=== PATIENT | female | born 1935 | race Caucasian/White ===

== ENCOUNTER 2017-03-12 11:47 | Emergency (ER) | payer OTHER ==
[2017-03-12 11:52] VITALS: BP 163/80; PULSE 75; RESP 16; TEMP 98.1; O2SAT 94
--- NOTE | 2017-03-12 11:55 | EDPHY ---
HPI/HX/ROS/PE/MDM Narrative: CHIEF COMPLAINT: Light headed HPI: The patient is an 81 y/o female complaining of light headedness REVIEW OF SYSTEMS: Aside from elements discussed in the HPI, a comprehensive 10-point review of systems was reviewed and is negative. PMH: SOCIAL HISTORY: Lives in [place], , retired PHYSICAL EXAM: General:Patient is alert, in no acute distress. ENT:Eyes are normal to inspection. ENT inspection normal. Neck: Normal inspection. Full range of motion. Respiratory:No respiratory distress. Breath sounds normal bilaterally. Cardiovascular: Regular rate and rhythm. Strong peripheral pulses. Normal cap refill. Abdomen:The abdomen is nontender to palpation. There are no peritoneal signs. There are normal bowel sounds. Back: Normal to inspection. No tenderness to palpation. Skin: Normal color. No rash. Warm and dry. Extremities: Normal appearance. Full range of motion. Neuro: Oriented x3. Normal motor function. Normal sensory function. Portions of this note were transcribed by an ED scribe. I personally performed the history, physical exam, and medical decision making; and confirm the accuracy of the information in the transcribed note. General Time Seen by Provider: 03/12/17 11:53 Initial Vital Signs: Initial Vital Signs Temperature (C) 36.7 C 03/12/17 11:49 Heart Rate 75 03/12/17 11:49 Respiratory Rate 16 03/12/17 11:49 Blood Pressure 163/80 H 03/12/17 11:49 O2 Sat (%) 94 03/12/17 11:49 O2 Delivery Mode Room Air Allergies/Adverse Reactions: No Known Allergies Allergy (Verified 03/12/17 11:49) Home Medications: Medication Instructions Recorded Carbidopa/Levodopa 10/100Mg 08/02/15 [Sinemet 10/100 MG (RX)] Fludrocortisone Acetate [Florinef] 08/02/15 Levothyroxine [Synthroid] 25 mcg PO DAILY06 08/02/15 Mestinon 60mg (RX) 08/02/15 Midodrine HCl 08/02/15 Pramipexole Di-HCl [Mirapex 1.5 mg] 08/02/15 Departure - Departure Referrals: NONE *PRIMARY CARE P,. [Primary Care Provider] - As per Instructions Report Scribed for: Chino Beckham Report Scribed by: Arabella Verdugo Date of Report: 03/12/17 Time of Report: 11:55
== END 2017-03-12 12:00 | disposition left against medical advice (07) ==
DX: Z53.21 Procedure and treatment not carried out due to patient leaving prior to being seen by health care provider (principal)

== ENCOUNTER 2017-07-19 03:40 | Observation (INO) | payer OTHER ==
[2017-07-19] MEDS ORDERED: NS 1,000 ML IV ONE (03:49)
[2017-07-19] MEDS ORDERED: ONDANSETRON 4 MG/2 ML VIAL IVP ONE (03:49)
[2017-07-19 03:55] LABS: PLATELET COUNT 311 10^3/uL (150-400)
--- NOTE | 2017-07-19 06:10 | CPEKG ---
Heart Rate: 82 RR Interval: 732 QRSD Interval: 110 QT Interval: 400 QTC Interval: 468 QRS [place]be[place]: 96 T Wave [place]: -21 EKG Severity - ABNORMAL ECG - EKG Impression: NONSPECIFIC INTRAVENTRICULAR CONDUCTION DELAY EKG Impression: MINIMAL ST DEPRESSION, ANTEROLATERAL LEADS Electronically Signed By: Claire Sam 20-Jul-2017 07:37:28
--- NOTE | 2017-07-19 06:27 | EDPHY ---
H & P Stated Complaint: weakness, poss dehydration Time Seen by Provider: 07/19/17 03:46 HPI/ROS: HPI The patient presents with diarrhea, weakness, extremity pain. She is brought in by ambulance from [facility] in independent living facility where she resides. Apparently, the patient was well at about 9:00 p.m. When bed checks were performed. She was resting comfortably. Then, several hours later, she was found in her bed complaining of weakness with fecal incontinence with large amount of diarrhea. She was unable to stand to clean herself. She normally is able to walk fairly independently, using a walker occasionally. She was complaining of pain in her arms and legs which was cramping in nature. She has not had a fever. She denies any sick contacts. She said she did have a [employer] Gr[employer] dinner with some spicy foods. REVIEW OF SYSTEMS Constitutional: No fever, no chills. Eyes: No discharge. ENT: No sore throat. Cardiovascular: No chest pain, no palpitations. Respiratory: No cough, no shortness of breath. Gastrointestinal: No abdominal pain, no vomiting. Genitourinary: No hematuria. Musculoskeletal: No back pain. Skin: No rashes. Neurological: No headache. PMHx: [place] patient, history of Parkinson's, history of hypothyroidism, hyperlipidemia, renal insufficiency Soc Hx: Resides at [facility], aids in the care of her , walks without difficulty, though uses a walker occasionally PHYSICAL General Appearance: Alert, no distress Eyes: no pallor or injection ENT, Mouth: Mucous membranes dry Respiratory: There are no retractions, lungs are clear to auscultation Cardiovascular: Regular rate and rhythm Gastrointestinal: Abdomen is soft and non-tender, no masses, bowel sounds normal Neurological: A&O, moves all extremities Skin: Warm and dry, no rashes Musculoskeletal: Neck is supple non tender Extremities: symmetrical, full range of motion Psychiatric: Patient is oriented X 3, there is no agitation Source: Patient, EMS Exam Limitations: No limitations - Personal History Current Tetanus Diphtheria and Acellular Pertussis (TDAP): Unsure - Medical/Surgical History Hx Asthma: No Hx Chronic Respiratory Disease: No Hx Diabetes: No Hx Cardiac Disease: No Hx Renal Disease: No Hx Cirrhosis: No Hx Alcoholism: No Hx HIV/AIDS: No Hx Splenectomy or Spleen Trauma: No Other PMH: PMH: Parkinsons, hypothyroid, hyperlipidemia, left carotid bruit, left eye blindness, othostatic hypotension, renal insufficiency, osteopenia - Social History Smoking Status: Never smoked Constitutional: Initial Vital Signs Heart Rate 82 07/19/17 04:00 Respiratory Rate 20 07/19/17 04:00 Blood Pressure 103/52 L 07/19/17 04:00 O2 Sat (%) 92 07/19/17 04:00 O2 Delivery Mode Room Air Allergies/Adverse Reactions: No Known Allergies Allergy (Verified 07/19/17 04:09) Home Medications: Medication Instructions Recorded Carbidopa/Levodopa 10/100Mg 08/02/15 [Sinemet 10/100 MG (RX)] Fludrocortisone Acetate [Florinef] 08/02/15 Levothyroxine [Synthroid] 25 mcg PO DAILY06 08/02/15 Mestinon 60mg (RX) 08/02/15 Midodrine HCl 08/02/15 Pramipexole Di-HCl [Mirapex 1.5 mg] 08/02/15 Medical Decision Making - Diagnostics EKG Interpretation: EKG: Complete interpretation has been separately recorded in the [facility] archive. Summary impression: Normal sinus rhythm Imaging Results: Chest x-ray one view demonstrates possible small left-sided pleural effusion, no infiltrate, interpreted by me, radiology interpretation is pending. Differential Diagnosis: This is an 81-year-old female presenting from assisted living facility with diarrhea, weakness, extremity pain for the last several hours. On exam, blood pressure is low, heart rate normal. Her abdominal exam is benign. She has had no ongoing diarrhea. Differential diagnosis includes electrolyte disturbance, dehydration, viral gastroenteritis, toxin mediated enterocolitis, less likely C difficile is no antibiotics by report. In the emergency department, patient was given 1 L of fluid for presumed volume depletion with improvement in her symptoms. She had diminished pain in her extremities and felt stronger. Labs were checked and did demonstrate elevated BUN and creatinine consistent with pre renal azotemia with underlying chronic renal insufficiency. Lactate was normal. Blood pressure improved. I feel she should be admitted for continued hydration I have discussed the case with the hospitalist Dr. Garcia. - Data Points Laboratory Results: Laboratory Results 07/19/17 03:40 07/19/17 03:40 07/19/17 07/19/17 07/19/17 05:40 03:40 03:40 WBC RBC Hgb Hct MCV MCH MCHC RDW Plt Count MPV Neut % (Auto) Lymph % (Auto) Morrill % (Auto) Eos % (Auto) Baso % (Auto) Nucleat RBC Rel Count Absolute Neuts (auto) Absolute Lymphs (auto) Absolute Monos (auto) Absolute Eos (auto) Absolute Basos (auto) Absolute Nucleated RBC Immature Gran % Immature Gran # VBG Lactic Acid 1.4 mmol/L mmol/L (0.7-2.1) Sodium 148 mEq/L H mEq/L (135-145) Potassium 4.0 mEq/L mEq/L (3.5-5.2) Chloride 111 mEq/L H mEq/L (97-110) Carbon Dioxide 24 mEq/l mEq/l (22-31) Anion Gap 13 mEq/L mEq/L (8-16) BUN 46 mg/dL H mg/dL (7-23) Creatinine 1.3 mg/dL H mg/dL (0.6-1.0) Estimated GFR 39 Glucose 107 mg/dL H mg/dL (70-100) Calcium 9.2 mg/dL mg/dL (8.5-10.4) Magnesium 1.6 mg/dL mg/dL (1.6-2.3) Total Bilirubin 0.4 mg/dL mg/dL (0.1-1.4) AST 21 IU/L IU/L (14-46) ALT 24 IU/L IU/L (9-52) Alkaline Phosphatase 122 IU/L IU/L (38-126) Creatine Kinase 87 IU/L IU/L (0-156) Total Protein 6.4 g/dL g/dL (6.3-8.2) Albumin 3.9 g/dL g/dL (3.5-5.0) 07/19/17 03:40 WBC 8.91 10^3/uL 10^3/uL (3.80-9.50) RBC 4.19 10^6/uL 10^6/uL (4.18-5.33) Hgb 12.6 g/dL g/dL (12.6-16.3) Hct 39.1 % % (38.0-47.0) MCV 93.3 fL fL (81.5-99.8) MCH 30.1 pg pg (27.9-34.1) MCHC 32.2 g/dL L g/dL (32.4-36.7) RDW 13.5 % % (11.5-15.2) Plt Count 311 10^3/uL 10^3/uL (150-400) MPV 10.2 fL fL (8.7-11.7) Neut % (Auto) 86.0 % H % (39.3-74.2) Lymph % (Auto) 8.2 % L % (15.0-45.0) Morrill % (Auto) 4.3 % L % (4.5-13.0) Eos % (Auto) 1.0 % % (0.6-7.6) Baso % (Auto) 0.3 % % (0.3-1.7) Nucleat RBC Rel Count 0.0 % % (0.0-0.2) Absolute Neuts (auto) 7.66 10^3/uL H 10^3/uL (1.70-6.50) Absolute Lymphs (auto) 0.73 10^3/uL L 10^3/uL (1.00-3.00) Absolute Monos (auto) 0.38 10^3/uL 10^3/uL (0.30-0.80) Absolute Eos (auto) 0.09 10^3/uL 10^3/uL (0.03-0.40) Absolute Basos (auto) 0.03 10^3/uL 10^3/uL (0.02-0.10) Absolute Nucleated RBC 0.00 10^3/uL 10^3/uL (0-0.01) Immature Gran % 0.2 % % (0.0-1.1) Immature Gran # 0.02 10^3/uL 10^3/uL (0.00-0.10) VBG Lactic Acid Sodium Potassium Chloride Carbon Dioxide Anion Gap BUN Creatinine Estimated GFR Glucose Calcium Magnesium Total Bilirubin AST ALT Alkaline Phosphatase Creatine Kinase Total Protein Albumin Medications Given: Discontinued Medications Sodium Chloride (Ns) 1,000 mls @ 0 mls/hr IV EDNOW ONE; Wide Open PRN Reason: Protocol Stop: 07/19/17 03:50 Last Admin: 07/19/17 03:59 Dose: 1,000 mls Ondansetron HCl (Zofran) 4 mg IVP EDNOW ONE Stop: 07/19/17 03:50 Last Admin: 07/19/17 04:13 Dose: Not Given Departure - Departure Disposition: [facility] Inpatient Acute Clinical Impression: Dehydration, Acute on chronic renal failure, Diarrhea, Weakness Condition: Fair Referrals: NONE *PRIMARY CARE P,. [Primary Care Provider] - As per Instructions
[2017-07-19] MEDS ORDERED: NS 1,000 ML IV SCH ×2 (06:45→07:15)
[2017-07-19] MEDS ORDERED: ONDANSETRON 4 MG/2 ML VIAL IVP PRN ×2 (07:05→08:21)
[2017-07-19] MEDS ORDERED: ACETAMINOPHEN 325 MG TAB PO PRN ×2 (07:05→08:21)
[2017-07-19] MEDS: HEPARIN 5,000 UNIT/0.5 ML SYR SC SCH ×2 (08:00→15:59)
[2017-07-19] MEDS: LEVOTHYROXINE 100 MCG TAB PO SCH (11:31)
[2017-07-19] MEDS: ATORVASTATIN CALCIUM 40 MG TAB PO SCH (11:31)
[2017-07-19] MEDS: CARBIDOPA/LEVODOPA 25 MG/100 MG TAB PO SCH ×3 (11:32→20:13)
[2017-07-19] MEDS: POTASSIUM CL 10 MEQ TAB PO SCH (11:32)
[2017-07-19] MEDS: ASPIRIN 81 MG CHEWABLE TAB PO SCH (11:33)
[2017-07-19] MEDS: FLUDROCORTISONE ACETATE 0.1 MG TAB PO SCH (11:48)
[2017-07-19] MEDS ORDERED: NON-FORMULARY NEW DRUG (Midodrine Hcl [Midodrine Hcl] 10 MG) PO SCH (12:00)
[2017-07-19] MEDS: PYRIDOSTIGMINE BROMIDE 60 MG TAB PO SCH ×2 (13:12→16:21)
[2017-07-19] MEDS: MIDODRINE HCL 5 MG TAB PO SCH ×2 (13:12→16:21)
[2017-07-19] MEDS: NS 1,000 ML IV SCH (13:16)
[2017-07-19] MEDS: CARBIDOPA/LEVO CR 50 MG/200 MG TAB PO SCH (13:18)
--- NOTE | 2017-07-19 16:29 | GHP ---
[f rep st] HISTORY AND PHYSICAL DATE OF ADMISSION: 07/19/2017 CHIEF COMPLAINT: Diarrhea, weakness. HISTORY OF PRESENT ILLNESS: This is an 81-year-old female who has a history of Parkinson's. She sultana es in assisted living. She presented with acute diarrhea last night and fecal incontinence and weakn ess. She was unable to stand to clean herself. She usually is walking fairly independently. She is not having any nausea, vomiting. She has a little bit of lower abdominal pain. No fevers or chills . She did have a [employer] Gras dinner with food that she is not usually accustomed to including spicy f ood that night. I am seeing her several hours after admission, and patient currently feels a lot bet ter with a little bit of IV fluids. She is not having any further diarrhea. Abdominal pain seems to be improving. REVIEW OF SYSTEMS: A 10-point review of systems was obtained and negative. PAST MEDICAL HISTORY: 1. Parkinson's. 2. Renal insufficiency. 3. Hyperlipidemia. 4. Appears to have orthostatic or autonomic insufficiency. She is on multiple medications for her b lood pressure. MEDICATIONS: Reviewed. SOCIAL HISTORY: Lives in assisted living. No smoking. FAMILY HISTORY: Reviewed and noncontributory. PHYSICAL EXAM: VITAL SIGNS: Afebrile, blood pressure is elevated at 159/96, heart rate 80, oxygen s aturation 98% on room air. GENERAL: The patient is well developed, no apparent distress. HEENT: N onicteric sclerae. Extraocular movements intact. Moist mucous membranes. NECK: Supple. No thyrom egaly. LUNGS: Good effort. Clear to auscultation bilaterally. CARDIOVASCULAR: Regular rate and r hythm. No murmurs, gallops. ABDOMEN: Positive bowel sounds. Soft, some mild right lower quadrant tenderness. No rebound or guarding. EXTREMITIES: No clubbing, cyanosis, edema. SKIN: Without gabo h, warm, intact. NEURO: Alert and oriented x3. Moving all 4 extremities equally. PSYCH: Normal a ffect. LABS: CBC is essentially normal. Lactic acid is normal. Chemistry does show a little bit of elevat ed sodium at 148. Creatinine is 1.3, and I do not have a baseline for her. Infectious panel is nega tive. Chest x-ray is being read a possible aneurysm versus hiatal hernia. ASSESSMENT/PLAN: 1. Acute diarrheal illness. This seems to be more of a food poisoning or food intolerance situation . She is not having nausea, vomiting, or fever. Her symptoms seem to be resolved. We will continue to monitor. 2. Dehydration. Continue IV fluids. 3. Hypernatremia, probably secondary to dehydration. 4. Acute renal failure versus chronic renal insufficiency. We will hydrate and see what her creatin ine is. 5. Possible soft tissue mass versus hiatal hernia versus descending thoracic aortic aneurysm. We wi ll hold off on CT scanning, see if her for creatinine improves, she may be able to get a contrast CT. It would probably be a better study. 6. Parkinson's. Continue medications. /[id number]/MODL
[2017-07-19] MEDS ORDERED: CARBIDOPA/LEVO CR 50 MG/200 MG TAB PO SCH (21:00)
[2017-07-19] MEDS ORDERED: PRAMIPEXOLE DI HCL 1.5 MG PO SCH (21:00)
[2017-07-20] MEDS: NS 1,000 ML IV SCH ×2 (00:04→08:55)
[2017-07-20] MEDS: LEVOTHYROXINE 100 MCG TAB PO SCH (06:10)
[2017-07-20] MEDS: CARBIDOPA/LEVODOPA 25 MG/100 MG TAB PO SCH ×3 (08:47→16:02)
[2017-07-20] MEDS: CARBIDOPA/LEVO CR 50 MG/200 MG TAB PO SCH ×3 (08:48→16:04)
[2017-07-20] MEDS: ATORVASTATIN CALCIUM 40 MG TAB PO SCH (08:49)
[2017-07-20] MEDS: MIDODRINE HCL 5 MG TAB PO SCH ×3 (08:49→16:01)
[2017-07-20] MEDS: FLUDROCORTISONE ACETATE 0.1 MG TAB PO SCH (08:49)
[2017-07-20] MEDS: POTASSIUM CL 10 MEQ TAB PO SCH (08:49)
[2017-07-20] MEDS: ASPIRIN 81 MG CHEWABLE TAB PO SCH (08:50)
[2017-07-20] MEDS: PYRIDOSTIGMINE BROMIDE 60 MG TAB PO SCH ×3 (08:50→16:02)
[2017-07-20] MEDS ORDERED: HALOPERIDOL LACT 5 MG/ML INJ IV ONE (10:15)
--- NOTE | 2017-07-20 13:41 | PDIAF ---
- Diagnosis Diagnosis: diarrhea - Medication Management Discharge Medications: Medications to Continue on Transfer Aspirin [Aspirin 81mg (*)] 81 mg PO DAILY 07/19/17 [Last Taken Unknown] Atorvastatin Calcium [Lipitor 40 mg (*)] 40 mg PO DAILY 07/19/17 [Last Taken Unknown] C,E,Zinc,Copper 11/Iieat9u/Lut [Ocuvite Adult 50 Plus Softgel] 1 each PO DAILY 07/19/17 [Last Taken Unknown] Calcium Citrate [Citracal] 200 mg PO DAILY 07/19/17 [Last Taken Unknown] Carbidopa/Levo Cr 50/200Mg [SINEMET CR 50/200 MG (*)] 0.5 tab PO 07,13 07/19/17 [Last Taken Unknown] Carbidopa/Levo Cr 50/200Mg [SINEMET CR 50/200 MG (*)] 1 tab PO HS 07/19/17 [ Last Taken Unknown] Carbidopa/Levodopa 25/100Mg [Sinemet 25/100 MG (*)] 0.5 tab PO 0700,1200,1630, 2100 07/19/17 [Last Taken Unknown] Cholecalciferol Vit D3 [Vitamin D3 (*)] 1,000 units PO DAILY 07/19/17 [Last Taken Unknown] Cyanocobalamin [Vitamin B12 (*)] 1,000 mcg PO DAILY 07/19/17 [Last Taken Unknown ] Fludrocortisone Acetate [Florinef] 0.3 mg PO DAILY 07/19/17 [Last Taken Unknown] Ketoconazole 2% [Nizoral Shampoo (*)] 1 kranthi TP DAILY 07/19/17 [Last Taken Unknown] Levothyroxine [Synthroid 100 mcg (*)] 100 mcg PO DAILY06 07/19/17 [Last Taken Unknown] Midodrine HCl 10 mg PO TID@07,12,1630 07/19/17 [Last Taken Unknown] Potassium Cl [Klor-Con 10 meq (RX)] 10 meq PO DAILY 07/19/17 [Last Taken Unknown ] Pramipexole Di-HCl [Mirapex ER] 3 mg PO HS 07/19/17 [Last Taken Unknown] Pyridostigmine [place] [Mestinon 60mg (*)] 60 mg PO TID@07,12,1630 07/19/17 [ Last Taken Unknown] Discharge Medications: Refer to the Discharge Home Medication list for PRN reason. - Orders Services needed: Home Care, Registered Nurse, Physical Therapy, Occupational Therapy Home Care Face to Face: I certify that this patient was under my care and that I had the required [id number] encounter meeting the encounter requirements on the discharge day. My findings support the fact that the patient is homebound as defined in Home Care Face to Face Continued: CMS Chapter 7 Medicare Benefits Manual 30.1.1 , The condition of the patient is such that there exists a normal inability to leave home and consequently, leaving home would require a considerable and taxing effort. - Follow Up Care Current Providers and Referrals: NONE *PRIMARY CARE P,. [Primary Care Provider] - As per Instructions
[2017-07-20 14:44] VITALS: O2SAT 94
[2017-07-20 17:31] VITALS: BP 172/98; PULSE 88; RESP 16; TEMP 98.6
--- NOTE | 2017-07-21 12:22 | ASDISCHSUM ---
Discharge Information Plan Status: Medically Cleared to Leave: Discharge Date:07/20/2017 07:32 PM CM D/C Disposition: ADT D/C Disposition:Home, Routine, Self-Care Projected Discharge Date:07/20/2017 11:00 AM Transportation at D/C: Discharge Delay Reason: Follow-Up Date:07/20/2017 11:00 AM Discharge Slot: Final Diagnosis: Placement Information Referral Type:Assisted Living Residence Referral ID:[id number] Provider Name:Josephine Ramos [facility] Address 1:[address] Phone Number: Address 2: Fax Number: [facility]:[place] Selection Factors: State:[place] Referral Type:*Home Health Care Services Referral ID:[id number] Provider Name:[facility] Address 1:[address] Address 2: City:[place] Selection Factors: State:[place] Patient Contact Information Contact Name:ROSELINE Relationship:Son Address: City: Alternate Phone: State/Zip Code: Email: Financial Information Financial Class:Medicare Advantage Plans Primary Plan Desc:[employer] OUTPAT Primary Plan Number:[id number] Secondary Plan Desc: Secondary Plan Number: Assessment Information [facility] CM Progress Note CM Note CM Note Notes: Pt admitted OBS from [facility] where she lives with her . Pt needs PT/OT at home. [facility] has the [employer] contract. Pt DC'd last night. Start of care will be 07/22. Date Signed: 07/21/2017 12:22 PM Electronically Signed By:Tasha Burt LCSW Intervention Information Intervention Type:*MCKEON-Signed Date of Service:07/19/2017 11:38 AM Patient Type:Observation Staff Member:Rosita Steele Hours: Discipline: Severity: Comment:
== END 2017-07-20 19:32 | disposition home or self-care (01) ==
LOC: EDUNIT# → F1N 08:19
PROVIDERS: ADMIT Family Medicine; ATTEND Family Medicine
DX: R19.7 Diarrhea, unspecified (principal); E86.0 Dehydration; E87.0 Hyperosmolality and hypernatremia; R53.1 Weakness; G20 Parkinson's disease; E03.9 Hypothyroidism, unspecified; E78.5 Hyperlipidemia, unspecified; H54.62 Unqualified visual loss, left eye, normal vision right eye; I95.1 Orthostatic hypotension; N18.9 Chronic kidney disease, unspecified
CPT/HCPCS: 71045; 93005; 96360; 99285; G0378; J1630; J1644

== ENCOUNTER 2017-08-12 10:47 | Emergency (ER) | payer OTHER ==
--- NOTE | 2017-08-12 11:03 | EDPHY ---
H & P Stated Complaint: increased parkinsonion tremors, recent medication changes Time Seen by Provider: 08/12/17 10:57 HPI/ROS: CHIEF COMPLAINT: Worsening Parkinsonian movement HISTORY OF PRESENT ILLNESS: The patient is brought to the emergency department by ambulance at the request of her family with reported worsening Parkinson's movement over the past day. The patient recently was started on medication for some delirium. She was started on this medication 2 weeks ago. There have been no changes to her regular Parkinson's medication. She took her regular dose of meds this morning. In the ED, the patient denies any acute pain, headache, neck pain, extremity pain or focal numbness or weakness. She has had no history of fever, cough or congestion. REVIEW OF SYSTEMS: A comprehensive 10 point review of systems is otherwise negative aside from elements mentioned in the history of present illness. Source: Patient Exam Limitations: No limitations - Personal History Current Tetanus Diphtheria and Acellular Pertussis (TDAP): Yes - Medical/Surgical History Hx Asthma: No Hx Chronic Respiratory Disease: No Hx Diabetes: No Hx Cardiac Disease: No Hx Renal Disease: No Hx Cirrhosis: No Hx Alcoholism: No Hx HIV/AIDS: No Hx Splenectomy or Spleen Trauma: No Other PMH: PMH: Parkinsons, hypothyroid, hyperlipidemia, left carotid bruit, left eye blindness, othostatic hypotension, renal insufficiency, osteopenia - Social History Smoking Status: Never smoked - Physical Exam Exam: General Appearance: Elderly female, no acute distress Eyes: Pupils equal and round no pallor or injection ENT, Mouth: Mucous membranes moist Respiratory: There are no retractions, lungs are clear to auscultation Cardiovascular: Regular rate and rhythm Gastrointestinal: Abdomen is soft and nontender, no masses, bowel sounds normal Neurological: Alert and oriented x3, 5/5 strength all 4 extremities, dyskinetic movements noted Extremities: symmetrical, full range of motion Constitutional: Initial Vital Signs Temperature (C) 36.3 C 08/12/17 10:56 Heart Rate 72 08/12/17 10:56 Respiratory Rate 18 08/12/17 10:56 Blood Pressure 164/107 H 08/12/17 10:56 O2 Sat (%) 95 08/12/17 10:56 O2 Delivery Mode Room Air Allergies/Adverse Reactions: No Known Allergies Allergy (Verified 08/12/17 11:36) Home Medications: Medication Instructions Recorded Calcium Citrate [Citracal] 200 mg PO DAILY 07/19/17 Carbidopa/Levo Cr 50/200Mg 0.5 tab PO 07,13 07/19/17 [SINEMET CR 50/200 MG (*)] Carbidopa/Levo Cr 50/200Mg 1 tab PO HS 07/19/17 [SINEMET CR 50/200 MG (*)] Carbidopa/Levodopa 25/100Mg 0.5 tab PO 0700,1200,1630,2100 07/19/17 [Sinemet 25/100 MG (*)] Cholecalciferol Vit D3 [Vitamin D3 1,000 units PO DAILY 07/19/17 (*)] Cyanocobalamin [Vitamin B12 (*)] 1,000 mcg PO DAILY 07/19/17 Fludrocortisone Acetate [Florinef] 0.3 mg PO DAILY 07/19/17 Levothyroxine [Synthroid 100 mcg 100 mcg PO DAILY06 07/19/17 (*)] Pramipexole Di-HCl [Mirapex ER] 3 mg PO HS 07/19/17 Aricept 08/12/17 Lipitor 08/12/17 Nizoral 2% Cream (*) 08/12/17 Tylenol 325mg (*) 08/12/17 Medical Decision Making ED Course/Re-evaluation: The patient presents to the ED with dyskinetic movements this morning. The patient has a history of Parkinson's disease and likely is having some over treatment of her condition. I spoke with her neurologist who recommends that she hold her CR carbidopa/ levodopa doses in the morning and afternoon take the medication only at night if she is exhibiting symptoms of over treatment. I have reviewed this with the patient and her son. They will communicate this to the patient's assisted living facility. The patient's neurologist will contact the patient to schedule a follow-up visit next week. She has been discharged home with customary aftercare instructions and return precautions. Differential Diagnosis: Differential diagnosis considered includes Parkinson's disease, dehydration, metabolic abnormality, medication side effect - Data Points Laboratory Results: Laboratory Results 08/12/17 11:15 08/12/17 11:15 08/12/17 08/12/17 11:15 11:15 WBC 7.41 10^3/uL 10^3/uL (3.80-9.50) RBC 3.83 10^6/uL L 10^6/uL (4.18-5.33) Hgb 11.3 g/dL L g/dL (12.6-16.3) Hct 34.7 % L % (38.0-47.0) MCV 90.6 fL fL (81.5-99.8) MCH 29.5 pg pg (27.9-34.1) MCHC 32.6 g/dL g/dL (32.4-36.7) RDW 13.8 % % (11.5-15.2) Plt Count 307 10^3/uL 10^3/uL (150-400) MPV 9.8 fL fL (8.7-11.7) Neut % (Auto) 70.6 % % (39.3-74.2) Lymph % (Auto) 18.4 % % (15.0-45.0) [place] % (Auto) 8.4 % % (4.5-13.0) Eos % (Auto) 1.5 % % (0.6-7.6) Baso % (Auto) 0.8 % % (0.3-1.7) Nucleat RBC Rel Count 0.0 % % (0.0-0.2) Absolute Neuts (auto) 5.24 10^3/uL 10^3/uL (1.70-6.50) Absolute Lymphs (auto) 1.36 10^3/uL 10^3/uL (1.00-3.00) Absolute Monos (auto) 0.62 10^3/uL 10^3/uL (0.30-0.80) Absolute Eos (auto) 0.11 10^3/uL 10^3/uL (0.03-0.40) Absolute Basos (auto) 0.06 10^3/uL 10^3/uL (0.02-0.10) Absolute Nucleated RBC 0.00 10^3/uL 10^3/uL (0-0.01) Immature Gran % 0.3 % % (0.0-1.1) Immature Gran # 0.02 10^3/uL 10^3/uL (0.00-0.10) Sodium 147 mEq/L H mEq/L (135-145) Potassium 3.6 mEq/L mEq/L (3.5-5.2) Chloride 112 mEq/L H mEq/L (97-110) Carbon Dioxide 27 mEq/l mEq/l (22-31) Anion Gap 8 mEq/L mEq/L (8-16) BUN 38 mg/dL H mg/dL (7-23) Creatinine 1.2 mg/dL H mg/dL (0.6-1.0) Estimated GFR 43 Glucose 54 mg/dL L mg/dL (70-100) Calcium 8.4 mg/dL L mg/dL (8.5-10.4) Departure - Departure Disposition: Home, Routine, Self-Care Clinical Impression: Parkinsons Condition: Good Instructions: Parkinson Disease (ED) Additional Instructions: 1. I spoke with your neurologist who recommends that carbidopa/levodopa CR medication be administered at night only and not 3 times a day. 2. Please contact their office to schedule a follow-up visit on Monday. 3. Please return to the ED for any worsening symptoms, fever, pain or other concerns. Referrals: Kaity PÉREZ MD [Other] - As per Instructions
[2017-08-12 11:16] VITALS: PULSE 72; RESP 18; TEMP 97.3
[2017-08-12 11:24] LABS: PLATELET COUNT 307 10^3/uL (150-400)
[2017-08-12 12:26] VITALS: BP 124/98; O2SAT 96
== END 2017-08-12 12:59 | disposition home or self-care (01) ==
LOC: EDUNIT#
DX: G20 Parkinson's disease (principal)

== ENCOUNTER 2017-08-19 08:42 | Observation (INO) | payer OTHER ==
--- NOTE | 2017-08-19 09:49 | EDPHY ---
H & P Smoking Status: Never smoked Time Seen by Provider: 08/19/17 09:20 HPI/ROS: CHIEF COMPLAINT: Weakness HISTORY OF PRESENT ILLNESS: 81-year-old female presents to the emergency department with overall generalized weakness. Patient lives in independent living facility and her son and daughter at bedside states that there has been a very steep decline acutely within the last few days. She is now having difficulty talking and swallowing. She feels very tired and weak. She is requiring assistance with toileting and getting around. Just last week she was able to use her walker independently. Her son states even last week she was "baking brownies". She denies a headache. She has a history of multiple falls. They think that the most recent fall was a few days ago. She is having some pain in her right shoulder. She has been evaluated by OT and PT. She was supposed to go to inpatient rehab today but they were concerned about the acute decline and brought her to the emergency department for evaluation. No reported fever. No URI symptoms. She did have episodes of diarrhea on Monday , 4 or 5 days ago which have now resolved. No chest pain or difficulty breathing. Her appetite has been normal. No urinary symptoms. She denies pain in her lower legs. She states that she just feels "very tired". Her son is wondering if this is related to some of her medications. REVIEW OF SYSTEMS: Constitutional: No fever, no chills. Eyes: No double or blurry vision. ENT: No sore throat. Respiratory: No cough, no shortness of breath. Cardiac: No chest pain. Gastrointestinal: No abdominal pain, vomiting or diarrhea. Genitourinary: No dysuria. Musculoskeletal: No neck or back pain. Skin: No rashes. Neurological: No headache. (KatarinaRiddhi loera) Past Medical/Surgical History: Parkinson's disease, hypothyroidism, hyperlipidemia, left carotid bruit, left eye blindness, orthostatic hypotension, renal insufficiency, osteopenia (Riddhi Conrad) Social History: and lives in independent living with her . (KatarinaRiddhi loera) Physical Exam: General Appearance: Alert, no distress. 123/69, 36.4 temp Eyes: Pupils equal and round. Extraocular motions are all intact. ENT: Mouth: Mucous membranes moist. Respiratory: No wheezing, rhonchi, or rales, lungs are clear to auscultation. Cardiovascular: Regular rate and rhythm. Gastrointestinal: Abdomen is soft and nontender, no masses, no rebound or guarding, bowel sounds normal. Neurological: Alert and oriented x 3, cranial nerves II through XII grossly intact Skin: Warm and dry, no rashes. Musculoskeletal: Nontender to palpate along the cervical, thoracic or lumbar spine. Neck is supple. Extremities: Deformity noted to the right shoulder. Minimally tender to palpate the right humeral head. Limited internal and external rotation. She is unable to flex and extend because of pain. She has full range of motion of her right elbow and wrist however. Full range of motion of the left upper extremity and lower extremities bilaterally. Psychiatric: Patient is oriented X 3, there is no agitation. (Riddhi Conrad) Constitutional: Initial Vital Signs Temperature (C) 36.4 C 08/19/17 08:47 Heart Rate 64 08/19/17 08:47 Respiratory Rate 17 08/19/17 08:47 Blood Pressure 123/69 H 08/19/17 08:47 O2 Sat (%) 97 08/19/17 08:47 O2 Delivery Mode Room Air Allergies/Adverse Reactions: No Known Allergies Allergy (Verified 08/19/17 08:44) Home Medications: Medication Instructions Recorded Carbidopa/Levo Cr 50/200Mg 1 tab PO HS 07/19/17 [SINEMET CR 50/200 MG (*)] Carbidopa/Levodopa 25/100Mg 0.5 tab PO 0700,1200,1630,2100 07/19/17 [Sinemet 25/100 MG (*)] Cholecalciferol Vit D3 [Vitamin D3 1,000 units PO DAILY 07/19/17 (*)] Cyanocobalamin [Vitamin B12 (*)] 1,000 mcg PO DAILY 07/19/17 Fludrocortisone Acetate [Florinef] 0.3 mg PO DAILY 07/19/17 Levothyroxine [Synthroid 100 mcg 100 mcg PO DAILY06 07/19/17 (*)] Acetaminophen [Tylenol ES 500 mg 500 - 1,000 mg PO Q6 PRN 08/19/17 (*)] Atorvastatin Calcium [Lipitor 40 40 mg PO DAILY 08/19/17 mg (*)] Donepezil HCl 5 mg PO DAILY 08/19/17 Ketoconazole 2% [Nizoral 2% Cream 1 kranthi TP BID PRN 08/19/17 (*)] Potassium Cl [Klor-Con] 10 meq PO DAILY 08/19/17 Pramipexole Di-HCl [Mirapex 1 mg 3 mg PO HS 08/19/17 (*)] Pyridostigmine Clifford [Mestinon 60 mg PO TID 08/19/17 60mg (*)] Medical Decision Making - Diagnostics Imaging: Discussed imaging studies w/ weight caller Radiologist, I viewed and interpreted images myself - Diagnostics EKG Interpretation: EKG interpreted by me shows normal sinus rhythm normal interval and axis. QRS appears normal there is no significant ST elevation or depression. There is no arrhythmia. The rate is 65 (Nino Escalante) Imaging Results: Imaging Impressions Head CT 08/19/17 09:53 Impression: 1. Mild to moderate age-related atrophy. 2. Hypodense chronic subdural hematoma measuring 7-8 mm in thickness over the right frontal and parietal lobes with 3 to 4 mm of [id number]-[id number] shift. If symptoms worsen, additional imaging may be necessary. Findings discussed with Riddhi Conrad PA-C at 11:06 hour, 08/19/2017. Chest X-Ray 08/19/17 11:02 Impression: 1. No active cardiopulmonary disease seen. 2. Leftward subluxation of L1 on L2 with compression of the endplates. Consider dedicated lumbar spine series for further characterization. Shoulder X-Ray 08/19/17 11:02 Impression: 1. The right proximal humeral head is positioned in an exaggerated internal rotation position. A definitive dislocation is not appreciated. If there is a high clinical concern then consider CT or MRI as clinically directed. ED Course/Re-evaluation: I did not see this patient while she was in the emergency department. However her care was discussed with the PA while the patient was in the department. I agree with treatment plan and management (Nino Escalante) 81-year-old female presents to the emergency department with weakness. The patient has a history of Parkinson's. Her son and daughter at bedside states that they have been changing her medications some. She is scheduled to go to rehab this afternoon, however they have noticed more of an acute decline especially over last few days in her mentation. 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 CT imaging reveals evidence of small subdural hematoma involving right frontal parietal lobe with right to left shift at 3 mm. The radiologist says that this appears old. I did speak with the on-call neurosurgeon, Dr. Fleming, who did come to evaluate the patient and does not feel that any intervention is necessary right now. The patient is holding her right shoulder in obvious internal rotation. She has a very limited mobility of her right shoulder. I was concerned about possible dislocation. X-rays do not reveal obvious fracture however difficult to tell as if it is dislocated or if it's positional. CT imaging of the right shoulder has been ordered and is pending. The patient will be admitted to Dr. Idris Landaverde, hospitalist. I did speak with the [facility] physician and they are okay with her staying here. The son and daughter at bedside understand that given her acute decline as well as findings of subdural hematoma with shift that I do not think that she is safe for discharging to rehab. (Riddhi Conrad) Differential Diagnosis: Weakness including but not limited to electrolyte abnormality, depression, anxiety, CVA, spinal cord abnormality, and infectious causes. (Riddhi Conrad) - Data Points Laboratory Results: Laboratory Results 08/19/17 09:59 08/19/17 09:59 08/19/17 08/19/17 08/19/17 12:03 11:00 09:59 WBC RBC Hgb Hct MCV MCH MCHC RDW Plt Count MPV Neut % (Auto) Lymph % (Auto) Slope % (Auto) Eos % (Auto) Baso % (Auto) Nucleat RBC Rel Count Absolute Neuts (auto) Absolute Lymphs (auto) Absolute Monos (auto) Absolute Eos (auto) Absolute Basos (auto) Absolute Nucleated RBC Immature Gran % Immature Gran # PT 14.2 SEC SEC (12.0-15.0) INR 1.08 (0.83-1.16) APTT 37.0 SEC SEC (23.0-38.0) Sodium 143 mEq/L mEq/L (135-145) Potassium 3.4 mEq/L L mEq/L (3.5-5.2) Chloride 106 mEq/L mEq/L (97-110) Carbon Dioxide 28 mEq/l mEq/l (22-31) Anion Gap 9 mEq/L mEq/L (8-16) BUN 36 mg/dL H mg/dL (7-23) Creatinine 1.0 mg/dL mg/dL (0.6-1.0) Estimated GFR 53 Glucose 70 mg/dL mg/dL (70-100) Calcium 8.3 mg/dL L mg/dL (8.5-10.4) Troponin I < 0.012 ng/mL ng/mL (0.000-0.034) Urine Color YELLOW Urine Appearance HAZY Urine pH 5.0 (5.0-7.5) Ur Specific [place] 1.019 (1.002-1.030) Urine Protein NEGATIVE (NEGATIVE) Urine Ketones TRACE H (NEGATIVE) Urine Blood NEGATIVE (NEGATIVE) Urine Nitrate NEGATIVE (NEGATIVE) Urine Bilirubin NEGATIVE (NEGATIVE) Urine Urobilinogen NEGATIVE EU EU (0.2-1.0) Ur Leukocyte Esterase NEGATIVE (NEGATIVE) Urine RBC 1-3 /hpf /hpf (0-3) Urine WBC 1-3 /hpf /hpf (0-3) Ur Epithelial Cells TRACE /lpf /lpf (NONE-1+) Hyaline Casts 5-15 /lpf /lpf (0-1) Urine Mucus TRACE /lpf /lpf (NONE-1+) Urine Glucose NEGATIVE (NEGATIVE) 08/19/17 09:59 WBC 8.26 10^3/uL 10^3/uL (3.80-9.50) RBC 3.99 10^6/uL L 10^6/uL (4.18-5.33) Hgb 11.5 g/dL L g/dL (12.6-16.3) Hct 35.7 % L % (38.0-47.0) MCV 89.5 fL fL (81.5-99.8) MCH 28.8 pg pg (27.9-34.1) MCHC 32.2 g/dL L g/dL (32.4-36.7) RDW 13.7 % % (11.5-15.2) Plt Count 283 10^3/uL 10^3/uL (150-400) MPV 10.0 fL fL (8.7-11.7) Neut % (Auto) 78.4 % H % (39.3-74.2) Lymph % (Auto) 13.2 % L % (15.0-45.0) Slope % (Auto) 6.7 % % (4.5-13.0) Eos % (Auto) 1.1 % % (0.6-7.6) Baso % (Auto) 0.4 % % (0.3-1.7) Nucleat RBC Rel Count 0.0 % % (0.0-0.2) Absolute Neuts (auto) 6.48 10^3/uL 10^3/uL (1.70-6.50) Absolute Lymphs (auto) 1.09 10^3/uL 10^3/uL (1.00-3.00) Absolute Monos (auto) 0.55 10^3/uL 10^3/uL (0.30-0.80) Absolute Eos (auto) 0.09 10^3/uL 10^3/uL (0.03-0.40) Absolute Basos (auto) 0.03 10^3/uL 10^3/uL (0.02-0.10) Absolute Nucleated RBC 0.00 10^3/uL 10^3/uL (0-0.01) Immature Gran % 0.2 % % (0.0-1.1) Immature Gran # 0.02 10^3/uL 10^3/uL (0.00-0.10) PT INR APTT Sodium Potassium Chloride Carbon Dioxide Anion Gap BUN Creatinine Estimated GFR Glucose Calcium Troponin I Urine Color Urine Appearance Urine pH Ur Specific [place] Urine Protein Urine Ketones Urine Blood Urine Nitrate Urine Bilirubin Urine Urobilinogen Ur Leukocyte Esterase Urine RBC Urine WBC Ur Epithelial Cells Hyaline Casts Urine Mucus Urine Glucose Medications Given: Carbidopa/Levodopa (Sinemet) 0.5 tab PO 0700,1200,1630,2100 [facility] Stop: 02/15/18 16:29 Last Admin: 08/19/17 16:35 Dose: 0.5 tab Pyridostigmine Clifford (Mestinon) 60 mg PO TID [facility] Stop: 02/15/18 15:59 Last Admin: 08/19/17 16:35 Dose: 60 mg Discontinued Medications Carbidopa/Levodopa (Sinemet Cr 50/200) 1 tab PO ONCE ONE Stop: 08/19/17 13:16 Last Admin: 08/19/17 16:36 Dose: Not Given Departure - Departure Disposition: [facility] Acute Clinical Impression: Weakness, Subdural hematoma Contusion of right shoulder Qualifiers: Encounter type: initial encounter Qualified Code(s): S40.011A - Contusion of right shoulder, initial encounter Condition: Good
[2017-08-19 10:16] LABS: PLATELET COUNT 283 10^3/uL (150-400)
--- NOTE | 2017-08-19 10:49 | CPEKG ---
Heart Rate: 65 RR Interval: 923 P-R Interval: 146 QRSD Interval: 106 QT Interval: 444 QTC Interval: 462 P [place]: 20 QRS [place]: 61 T Wave [place]: -25 EKG Severity - ABNORMAL ECG - EKG Impression: SINUS RHYTHM EKG Impression: CORINNE, CONSIDER BIATRIAL ABNORMALITIES EKG Impression: INCOMPLETE RIGHT BUNDLE BRANCH BLOCK EKG Impression: CONSIDER ANTEROSEPTAL INFARCT Electronically Signed By: Nino Escalante 19-Aug-2017 15:45:19
[2017-08-19 12:15] LABS: INR 1.08 (0.83-1.16); PROTIME(PATIENT) 14.2 SEC (12.0-15.0)
[2017-08-19] MEDS ORDERED: CARBIDOPA/LEVO CR 50 MG/200 MG TAB PO ONE (13:15)
[2017-08-19] MEDS ORDERED: ONDANSETRON DISINTEGRATING 4 MG TAB PO PRN (13:16)
[2017-08-19] MEDS ORDERED: ACETAMINOPHEN 325 MG TAB PO PRN (13:16)
[2017-08-19] MEDS ORDERED: ONDANSETRON 4 MG/2 ML VIAL IVP PRN (13:16)
--- NOTE | 2017-08-19 13:32 | ASMTCMCOM ---
CM Note CM Note Notes: Patient is a [place] patient who lives independently at [facility]. Patient was scheduled to admit to [facility] rehabilitation today, but presents to the ER (see ED report) due to increasing difficulties, falling, LOC issues. Patient will now be admitted with concerning head CT, neurosurgery consulting. Patient was admitted to this facility on 07/19/17 and discharged on 07/21/17 with Interim PT/OT. I have spoken to Lizet in admission at [facility] in [place] to update her and confirm that patient will be admitted at this time. patient is accompanied by her son and DIL and involved in patient's care CM will follow and facilitate discharge planning Date Signed: 08/19/2017 01:32 PM Electronically Signed By:Madison Saldana RN
--- NOTE | 2017-08-19 13:54 | GCON ---
[f rep st] CONSULTATION DATE OF CONSULTATION: 08/19/2017 CONSULTING SERVICE: Dr. Conrad, Emergency Medicine. REASON FOR CONSULT: Small, chronic right-sided subdural collection. HISTORY OF PRESENT ILLNESS: The patient is an 81-year-old female, with Parkinson disease, who presen ts to the emergency department with overall generalized weakness and neurologic decline recently. Keith smith has had multiple falls in the past, based on her daughter and son's report, and this number has bee n increasing in frequency. She had a fall approximately 2 weeks ago which was the last to their stefanie llection. She lives in an independent living facility. Over the past few days, they have noticed he r having difficulty talking and swallowing. She is very tired and weak. She needs help getting most of her activities of daily living completed. There is a possibility that some of the medications fo r her Parkinson disease have been changed recently. Head CT was performed upon presentation, and a c hronic right-sided subdural collection was noted, and the radiologist called 3 mm of midline shift wh ich prompted a neurosurgical consult. On my interview, the patient is awake and alert, very pleasant , and is able to provide some history, and her family is at bedside to provide the rest. PAST MEDICAL AND SURGICAL HISTORY: Parkinson disease, hypothyroidism, hyperlipidemia, left carotid b ruit, left eye blindness, orthostatic hypotension, renal insufficiency, osteopenia. ALLERGIES: No known drug allergies. CODE STATUS: Full. SOCIAL HISTORY: and lives in independent living with her . Denies alcohol, tobacco, or drug abuse. FAMILY HISTORY: Negative for subdural hematoma. HOME MEDICATIONS: Calcium, Sinemet, vitamin D, fludrocortisone, Synthroid, pramipexole, Aricept, Lip itor, donepezil. REVIEW OF SYSTEMS: Ten points reviewed and negative, other than stated in HPI. PHYSICAL EXAMINATION: VITAL SIGNS: Temperature is afebrile at 36.4, heart rate 64, blood pressure 1 23/69, respiratory rate 17, saturating 97% on room air. NEUROLOGIC: Patient is awake, alert, orient ed x3 and appears stated age. She is in no acute distress. She is quite pleasant. She has reasonab ly good, fluent speech. She follows all commands. She is nonfocal in upper and lower extremities wi th relatively full strength for her age. She has no pronator drift. She has normal sensation, eric l reflexes, and no cerebellar findings. LABORATORIES: White blood cell count 8.26, hemoglobin 11.5, platelet count 283. INR 1.08. Sodium i s 143, potassium is 3.4, BUN is 36, and creatinine is 1.0 with glucose of 70. Troponin is less than 0.012. Urinalysis is negative for infection. REVIEW OF IMAGING: I reviewed the patient's noncontrasted head CT. I agree she has a chronic right- sided subdural collection that is quite thin. There is relatively minimal shift, despite the 3 mm re ported in the 7 mm thickness of the subdural collection. Patient has significant brain atrophy and a dequate space to compensate a very small collection such as this. It has likely been there for weeks , potentially months, and is essentially a subdural hygroma as opposed to a chronic subdural hematoma . IMPRESSION AND PLAN: An 81-year-old female with Parkinson's, frequent falls, somewhat of a significa nt neurologic decline recently with inability to care for herself. She is nonfocal on exam. She has a very small, thin right-sided subdural collection that is chronic in nature and exhibits almost no mass effect on the brain with very minimal midline shift. I do not think the subdural collection is significant. I do not think it is causing her recent neurologic decline. I am not concerned about i t in any way. I do not plan to re-image it. I do not think anything needs to be done to follow it, and I do not plan to follow the patient long-term. The patient has had failure to thrive. She shoul d be admitted for medical workup, as this is likely related to her Parkinson disease or some other et iology. I do appreciate the consult. I have communicated my recommendations directly to Dr. Anamaria Landaverde. I am signing off now. /[id number]/MODL
--- NOTE | 2017-08-19 14:00 | GHP ---
[f rep st] HISTORY AND PHYSICAL DATE OF ADMISSION: 08/19/2017 HISTORY OF PRESENT ILLNESS: Ms. Cross is a pleasant 81-year-old female with a history of Parkinson's, who presents to the hospital with functional decline as well as some falls. The patient was seen he re a week ago with what sounds like over-medication with Parkinson's medications and they were reduce d in that her daytime controlled release carbidopa levodopa were discontinued staying only on the con trolled release overnight. Additionally, the patient had been started on Aricept on August 03 and just recently she had gone from a half a tab daily to a full tablet daily. Her family notes a decrease i n hallucinations since starting that medication. She has also had some falls lately, although none of them have frankly been witnessed. The family no elissa that a week ago she was doing things such as making brownies and now she is functionally dependen t on ADLs. There have been no fever, chills, cough, sputum, nausea, vomiting, diarrhea. She has bee n eating okay. There are no clear falls. In the emergency department a large workup was notable for dislocated shoulder and subdural hematoma, but metabolically the patient seems to be doing okay. REVIEW OF SYSTEMS: Complete 10-point review of systems conducted and negative except as noted in the HPI. PAST MEDICAL HISTORY: Parkinson's, renal insufficiency, hyperlipidemia, possible autonomic insuffici ency. ALLERGIES: No known drug allergies. CURRENT MEDICATION LIST: Waiting to be reconciled but includes Aricept, Citracal, carbidopa levodopa , both immediate and sustained release, vitamin D3, cyanocobalamin, Florinef, levothyroxine, Lipitor, Nizoral cream, pramipexole, Tylenol. SOCIAL HISTORY: Lives with at the [facility]. No tobacco. No alcohol. FAMILY HISTORY: Children are at the bedside and healthy. PHYSICAL EXAMINATION: VITAL SIGNS: Temp 36.4, blood pressure 123/69, pulse 64, breathing 17 times a minute, 97% on room air. GENERAL: No acute distress. Flat affect. HEENT: Sclerae anicteric. Or opharynx clear. She has dysconjugate gaze, which is not new. NECK: Supple without lymphadenopathy or JVD. LUNGS: Clear to auscultation bilaterally. HEART: S1, S2 without murmurs. ABDOMEN: Soft, nontender, nondistended. LOWER EXTREMITIES: Without edema. Calves are nontender. SKIN: Without rash. Her right upper extremity is internally rotated. She will not abduct it. Her right hand has trace edema but is neurovascularly intact with good cap refill. LABS: White count 8.3, hematocrit 35.7, platelets 143. Her INR is 1. Sodium 134, potassium 3.4, ch loride 106, bicarb 28, BUN 36, creatinine 1.0, which is about her baseline in terms of renal function . Troponin less than 0.012. UA is unremarkable for infection. Chest x-ray interpreted by me shows no acute cardiopulmonary disease. Dislocated right shoulder. No ncontrast head CT shows 7-8 mm subdural hematoma of the right frontal and parietal lobes with 3-4 mm of the apiij-ka-ubix shift. It appears chronic per the radiologist. I have discussed with Neurosurg freida who feels that the midline shift is perhaps exaggerated on the report. I have discussed the case with JESSENIA Christianson, in the emergency department. ASSESSMENT AND PLAN: An 81-year-old female, presents with functional decline, Parkinson's, dislocate d shoulder, subdural. 1. Subdural. This is felt not to be causative by Neurosurgery. They recommend no further imaging a nd they recommend no specific care. 2. Dislocated shoulder. This is likely secondary to some trauma, although sometimes at her age it t akes very little trauma to dislocate a shoulder. Orthopedics will see her if attempt at reduction is unsuccessful in the emergency department. 3. Parkinson's with functional decline. It sounds like at the [facility] she receives her medications late. There have been some medication changes lately. I will wait for the pharmacist to reconcile and restart her medications as programmed and will follow her response. I will continue her Aricept at a half a tablet a day because I think that the full tablet may have been contributing to this. 4. Functional decline. I think this is secondary to Parkinson's medications related with possibly c ontribution from the pain and discomfort of her dislocated shoulder. 5. Prophylaxis. Pharmacologic prophylaxis indicated. 6. Disposition: Inpatient status. /[id number]/MODL
--- NOTE | 2017-08-19 14:45 | PDMN ---
Medical Necessity Medical necessity: C/M review: Patient meets INPT criteria under [facility] Neurology GRG (Pparkinsons's disease), Musculoskeletal disease GRG (right shoulder dislocation): Acute and persistent right shoulder dislocation on xray, functional decline, new- inability to care for self, patient now functionally dependent for assist with ADLs, chronic 7-8 mm subdural hematoma of the right and parietal lobes with 3-4 mm right to left shift on CT- noncontributory per Neurosurgery consult, requiring Orthopedic consult if attempt at reduction of right shoulder dislocation is unsuccessful in ED, ongoing Parkinson's medications adjustment, acute inpt PT/OT/ST, Comorbid Parkinson's disease, unwitnessed falls at home, patient family noted patient was fairly independent and able to make browwnies one prior week to this admission, 08/12/2017 ED visit for overmedication with Parkinson's meds which were reduced in that daytime controlled release carbidopa levodopa was discontinued and staying only on the controlled release overnight med, 08/03/2017 patient started Aricept and recently had gone from a 1/2 tab daily to a full tablet daily, history of renal insufficiency, hyperlipidemia, possible autonomic insufficiency. MD anticipates > 2 MN LOS for ongoing med nec for eval abd TX of above. Patient is Medicare Advantage which follows CMS guidelines.
[2017-08-19] MEDS ORDERED: KETOCONAZOLE 2% 15 GM CREAM TP PRN (15:31)
[2017-08-19] MEDS: PYRIDOSTIGMINE BROMIDE 60 MG TAB PO SCH ×2 (16:35→21:13)
[2017-08-19] MEDS: CARBIDOPA/LEVODOPA 25 MG/100 MG TAB PO SCH ×2 (16:35→21:13)
[2017-08-19 17:57] VITALS: RESP 16
[2017-08-19] MEDS ORDERED: PRAMIPEXOLE 1 MG TAB PO SCH (21:00)
[2017-08-19] MEDS ORDERED: CARBIDOPA/LEVO CR 50 MG/200 MG TAB PO SCH (21:00)
[2017-08-20] MEDS ORDERED: LEVOTHYROXINE 100 MCG TAB PO SCH (06:00)
[2017-08-20] MEDS: CARBIDOPA/LEVODOPA 25 MG/100 MG TAB PO SCH ×2 (06:18→12:00)
[2017-08-20] MEDS ORDERED: CHOLECALCIFEROL VIT D3 1,000 UNITS TAB PO SCH (09:00)
[2017-08-20] MEDS ORDERED: DONEPEZIL HCL 5 MG TAB PO SCH (09:00)
[2017-08-20] MEDS ORDERED: ENOXAPARIN 40 MG/0.4 ML SYR SC SCH (09:00)
[2017-08-20] MEDS ORDERED: POTASSIUM CL 10 MEQ TAB PO SCH (09:00)
[2017-08-20] MEDS ORDERED: FLUDROCORTISONE ACETATE 0.1 MG TAB PO SCH (09:00)
[2017-08-20] MEDS ORDERED: ATORVASTATIN CALCIUM 40 MG TAB PO SCH (09:00)
[2017-08-20] MEDS ORDERED: CYANO/VITAMIN B12 1000 MCG TAB PO SCH (09:00)
--- NOTE | 2017-08-20 09:04 | HOSPPROG ---
Hospitalist Progress Note Assessment/Plan: 82 yo F w parkinsons ?shoulder dislocation: not dislocated PT/OT parkinson's: back on most recent med regimen w symptomatic improvement dispo: to powerback today this had been prebviously aranged > 30 minutes on dc Subjective: shoulder not dislocated. d/w dr aguilar. symptomatically improved Objective: Vital Signs Temp Pulse Resp BP Pulse Ox 36.3 C 72 16 102/89 H 92 08/20/17 04:00 08/20/17 04:00 08/20/17 04:00 08/20/17 04:00 08/20/17 04:00 08/19/17 08/20/17 08/21/17 05:59 05:59 05:59 Intake Total 950 Output Total 10 Balance 940 PT 14.2 SEC (12.0-15.0) 08/19/17 12:03 INR 1.08 (0.83-1.16) 08/19/17 12:03 - Physical Exam Constitutional: no apparent distress, appears nourished Eyes: PERRL, anicteric sclera Ears, Nose, Mouth, Throat: moist mucous membranes, hearing normal Cardiovascular: regular rate and rhythym, no murmur, rub, or gallop Respiratory: no respiratory distress, no rales or rhonchi Gastrointestinal: normoactive bowel sounds, soft, non-tender abdomen Genitourinary: no bladder fullness, No wolff in urethra Skin: warm, normal color Musculoskeletal: full muscle strength Neurologic: AAOx3 ICD10 Worksheet Patient Problems: Problems Problem Status Onset Contusion of right shoulder Acute Subdural hematoma Acute Weakness Acute Acute on chronic renal failure Acute Dehydration Acute Diarrhea Acute
[2017-08-20 09:10] VITALS: BP 91/42; PULSE 71; TEMP 97.2; O2SAT 93
--- NOTE | 2017-08-20 09:15 | PDIAF ---
- Diagnosis Diagnosis: parkinsons disease Code Status: Full Code - Medication Management Discharge Medications: Medications to Continue on Transfer Carbidopa/Levo Cr 50/200Mg [SINEMET CR 50/200 MG (*)] 1 tab PO HS 07/19/17 [ Last Taken Unknown] Carbidopa/Levodopa 25/100Mg [Sinemet 25/100 MG (*)] 0.5 tab PO 0700,1200,1630, 2100 07/19/17 [Last Taken Unknown] Cholecalciferol Vit D3 [Vitamin D3 (*)] 1,000 units PO DAILY 07/19/17 [Last Taken Unknown] Cyanocobalamin [Vitamin B12 (*)] 1,000 mcg PO DAILY 07/19/17 [Last Taken Unknown ] Fludrocortisone Acetate [Florinef] 0.3 mg PO DAILY 07/19/17 [Last Taken Unknown] Levothyroxine [Synthroid 100 mcg (*)] 100 mcg PO DAILY06 07/19/17 [Last Taken Unknown] Acetaminophen [Tylenol ES 500 mg (*)] 500 - 1,000 mg PO Q6 PRN 08/19/17 [Last Taken Unknown] Atorvastatin Calcium [Lipitor 40 mg (*)] 40 mg PO DAILY 08/19/17 [Last Taken Unknown] Donepezil HCl 5 mg PO DAILY 08/19/17 [Last Taken Unknown] Ketoconazole 2% [Nizoral 2% Cream (*)] 1 kranthi TP BID PRN 08/19/17 [Last Taken Unknown] Potassium Cl [Klor-Con 10 meq (RX)] 10 meq PO DAILY 08/19/17 [Last Taken Unknown ] Pramipexole Di-HCl [Mirapex 1 mg (*)] 3 mg PO HS 08/19/17 [Last Taken Unknown] Pyridostigmine [place] [Mestinon 60mg (*)] 60 mg PO TID 08/19/17 [Last Taken Unknown] Discharge Medications: Refer to the Discharge Home Medication list for PRN reason. - Orders Services needed: Registered Nurse, Certified Real Estate Salesperson, Physical Therapy, Occupational Therapy, Speech Language Pathologist - Follow Up Care Current Providers and Referrals: MILVIA,UNKNOWN [Other] - As per Instructions
--- NOTE | 2017-08-20 09:37 | GDS ---
[f rep st] DISCHARGE SUMMARY DISCHARGE DIAGNOSES: 1. Parkinson's with recent worsening of symptoms secondary to medication changes and misadministrati on. 2. 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 3. Recent functional decline. 4. Chronic kidney disease. 5. 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 6. Small subdural hematoma. HOSPITAL COURSE: Please see admission history and physical by Dr. Idris Landaverde. The patient prese nted with functional decline to the emergency department. She had actually been scheduled to go to [facility] per her son, was brought to the emergency department. A workup for medical causes harry led to reveal any contributing comorbid event. She had a noncontrast head CT showing a small subdura l hematoma with minimal midline shift. She was seen by Neurosurgery, who felt it was not contributor y to her current presentation. The patient was seen. Care was taken with Pharmacy and Hospital Medicine to sort out her medicines, and it sounds like she had recently had her long-acting carbidopa/levodopa changed from half a pill 2 times during the day and 1 pill at night to just 1 pill at night secondary to concern for overmedica tion. She was given this regimen plus the 0.5 mg of the short-acting 4 times daily. She was also co ntinued on pyridostigmine and donepezil half a tab a day. The patient did well, was alert and orient ed, symptomatically improved. She is discharged to [facility], where ongoing rehabilitation care shou ld be given to her shoulder for range of motion exercise. /[id number]/MODL
[2017-08-20] MEDS: PYRIDOSTIGMINE BROMIDE 60 MG TAB PO SCH (09:39)
--- NOTE | 2017-08-20 15:32 | ASDISCHSUM ---
Discharge Information Plan Status: Medically Cleared to Leave: Discharge Date:08/20/2017 12:16 PM CM D/C Disposition: ADT D/C Disposition:Halfway Facility Projected Discharge Date:08/20/2017 11:00 AM Transportation at D/C: Discharge Delay Reason: Follow-Up Date:08/20/2017 11:00 AM Discharge Slot: Final Diagnosis: Placement Information Referral Type:*Longterm/SNF Referral ID:[id number] Provider Name:Chiqui Duarte Address 1[address] [place] Phone Number: Address 2: Fax Number: City:[place] Selection Factors: State:[place] Patient Contact Information Contact Name:LOS Relationship:Son Address: City: Alternate Phone: [facility] Code: Email: Financial Information Financial Class:Medicare Advantage Plans Primary Plan Desc:[employer] [employer] OUTPAT Primary Plan Number:[id number] Secondary Plan Desc: Secondary Plan Number: Assessment Information [facility] CM Progress Note CM Note CM Note Notes: Patient is a [facility] patient who lives independently at [facility]. Patient was scheduled to admit to [facility] today, but presents to the ER (see ED report) due to increasing difficulties, falling, LOC issues. Patient will now be admitted with concerning head CT, neurosurgery consulting. Patient was admitted to this facility on 07/19/17 and discharged on 07/21/17 with Interim PT/OT. I have spoken to Lizet in admission at [facility] in [place] to update her and confirm that patient will be admitted at this time. patient is accompanied by her son and DIL and involved in patient's care CM will follow and facilitate discharge planning Date Signed: 08/19/2017 01:32 PM Electronically Signed By:Madison Saldana RN Case Management Discharge Plan Note Case Management Discharge Discharge Order Complete? Answers: Yes Patient to Obtain Answers: Other Notes: [facility] Medications Transportation Arranged Answers: NALINI W/Melissa Transport will Pick (Date 08/20/2017 12:00 PM & Time) Faxed Final Orders Answers: Yes Family Notified Answers: Yes Discharge Comments Notes: Patient discharged to [facility]; her family had arranged this prior to her admission yesterday. Transport set up with [facility] confirmation #[id number]; JOE Wallace will call report Date Signed: 08/20/2017 09:53 AM Electronically Signed By:Joana Veras RN Intervention Information
== END 2017-08-20 12:16 ==
LOC: INTOOBSV 13:18 → OBSVTOIN 13:18 → F3N 15:49
PROVIDERS: ADMIT Internal Medicine; ATTEND Internal Medicine
DX: G20 Parkinson's disease (principal); R53.1 Weakness; S43.011A Anterior subluxation of right humerus, initial encounter; I62.03 Nontraumatic chronic subdural hemorrhage; T42.8X5A Adverse effect of antiparkinsonism drugs and other central muscle-tone depressants, initial encounter; E86.0 Dehydration; G90.8 Other disorders of autonomic nervous system; E03.9 Hypothyroidism, unspecified; E78.5 Hyperlipidemia, unspecified; N18.9 Chronic kidney disease, unspecified; I95.1 Orthostatic hypotension; M85.89 Other specified disorders of bone density and structure, multiple sites; H54.62 Unqualified visual loss, left eye, normal vision right eye; Z91.81 History of falling
CPT/HCPCS: 70450; 71046; 73030; 73200; 92523; 92610; 93005; G0378; G8996; G8997; G8998; G9168; G9169; G9170